=== PATIENT | male | born 1995 | race Caucasian/White ===

== ENCOUNTER 2017-05-22 09:10 | Emergency (ER) | payer MEDICAID ==
[~2017-05-22] VITALS: Wt 60.2 kg
--- NOTE | 2017-05-22 10:59 | RADRPT ---
PROCEDURE: XR Elbow. CLINICAL INDICATION: Trauma, left elbow pain TECHNIQUE: AP, lateral and oblique views of the left elbow performed. COMPARISON: None. FINDINGS: There is no radiographic evidence of acute fracture or dislocation. There is no significant joint e ffusion. The joint spaces are preserved. The soft tissues are grossly unremarkable. IMPRESSION: 1. No radiographic evidence of acute osseous abnormality or significant joint effusion. RPTAT: UU .Caleb Orellana MD, MD Date Time Electronically viewed and signed by .Caleb Orellana MD, on 05/22/2017 10:58 .K/
--- NOTE | 2017-05-22 11:00 | RADRPT ---
PROCEDURE: Left clavicle radiographs. CLINICAL INDICATION: Trauma. Left clavicle pain. TECHNIQUE: Two views. Frontal and frontal oblique. COMPARISON: None available. FINDINGS: There is an acute minimally-displaced and slightly apex superiorly angulated left mid clavicle fract ure. The acromioclavicular and coracoclavicular distances are normal. There is no additional fract ure. The visualized left lung is clear. IMPRESSION: 1. Acute minimally-displaced and slightly apex superiorly angulated left mid clavicle fracture. RPTAT: UU .Caleb Orellana MD, Date Time Electronically viewed and signed by .Caleb Orellana MD, on 05/22/2017 10:59 .K/
--- NOTE | 2017-05-22 11:05 | ERD ---
ER Documentation Chief Complaint Date/Time DATE: 05/22/17 TIME: 11:02 Chief Complaint LEFT SHOULDER PAIN FROM A FALL FROM SKATEBOARDING. LIMITED ROM FROM PAIN HPI Is a 21-year-old male who presents the emergency department today complaining of some left shoulder pain from a fall from a skateboard 2 days ago. States he has pain when he moves his arm. He has not taken a medication for the pain. Denies any previous trauma, fevers or chills ROS All systems reviewed and are negative except as per history of present illness. Medications Home Meds Active Scripts Neomycin Moore/Bacitrac Zn/Poly (Triple Antibiotic Ointment) 1 Each Oint.pack, 1 EACH TP BID for 7 Days Prov:BRADY VAZQUEZ PA-C 05/22/17 Naproxen* (Naprosyn*) 500 Mg Tablet, 500 MG PO BID Y for PAIN AND/OR INFLAMMATION, #30 TAB Prov:BRADY VAZQUEZ PA-C 05/22/17 Tramadol HCl (Tramadol HCl) 50 Mg Tablet, 50 MG PO Q4 Y for PAIN, #20 TAB Prov:BRADY VAZQUEZ PA-C 05/22/17 PMhx/Soc Medical and Surgical Hx: pt denies Medical Hx, pt denies Surgical Hx Hx Alcohol Use: No Hx Substance Use: No Hx Tobacco Use: No Physical Exam Vitals Vital Signs Date Time Temp Pulse Resp B/P Pulse Ox O2 Delivery O2 Flow Rate FiO2 05/22/17 09:20 98.2 77 20 150/85 98 Physical Exam Const: No acute distress Head: Atraumatic Eyes: Normal Conjunctiva ENT: Normal External Ears, Nose and Mouth. Neck: Full range of motion..~ No meningismus. Resp: Clear to auscultation bilaterally Cardio: Regular rate and rhythm, no murmurs Abd: Soft, non tender, non distended. Normal bowel sounds Skin: No petechiae or rashes. Abrasion left elbow MSK: Left shoulder with no obvious deformity. No effusion. Nontender to palpation. Left clavicle with evidence of deformity and tenderness palpation. Left elbow with pain with full active range of motion evidence of abrasion. Mild tenderness to palpation. Pulses 2+. Distal neurovascularly intact. Neur: Awake and alert Psych: Normal Mood and Affect Results 24 hrs Current Medications Medications (Trade) Dose Ordered Sig/Jennifer Route PRN Reason Start Time Stop Time Status Last Admin Dose Admin Ibuprofen (Motrin) 800 mg ONCE ONCE PO 05/22/17 11:30 05/22/17 11:31 DIAGNOSTIC IMAGING REPORT Patient: KWADWO PEREZ : 1995 Age: 21 Sex: M MR #: [id number] DOS: 05/22/17 0000 Ordering MD: BRADY VAZQUEZ PA-C Location: [facility] Room/Bed: PROCEDURE: XR Elbow. CLINICAL INDICATION: Trauma, left elbow pain TECHNIQUE: AP, lateral and oblique views of the left elbow performed. COMPARISON: None. FINDINGS: There is no radiographic evidence of acute fracture or dislocation. There is no significant joint effusion. The joint spaces are preserved. The soft tissues are grossly unremarkable. IMPRESSION: 1. No radiographic evidence of acute osseous abnormality or significant joint effusion. RPTAT: UU .Caleb Orellana MD, MD Date Time Electronically viewed and signed by .Caleb Orellana MD, MD on 05/22/2017 10: 58 .K/ CC: BRADY VAZQUEZ PA-C DIAGNOSTIC IMAGING REPORT Patient: KWADWO PEREZ : 1995 Age: 21 Sex: M MR #: [id number] DOS: 05/22/17 0000 Ordering MD: BRADY VAZQUEZ PA-C Location: [facility] Room/Bed: PROCEDURE: Left clavicle radiographs. CLINICAL INDICATION: Trauma. Left clavicle pain. TECHNIQUE: Two views. Frontal and frontal oblique. COMPARISON: None available. FINDINGS: There is an acute minimally-displaced and slightly apex superiorly angulated left mid clavicle fracture. The acromioclavicular and coracoclavicular distances are normal. There is no additional fracture. The visualized left lung is clear. IMPRESSION: 1. Acute minimally-displaced and slightly apex superiorly angulated left mid clavicle fracture. RPTAT: UU .Caleb Orellana MD, MD Date Time Electronically viewed and signed by .Caleb Orellana MD, on 05/22/2017 10: 59 .K/ CC: BRADY VAZQUEZ PA-C Procedures/MDM This is a 21-year-old male who presents the emergency department today complaining of left arm pain after falling off a skateboard 2 days ago. Given the trauma and physical exam I did obtain images. Per the radiology report images of the left elbow show no significant joint effusion. There is no evidence of fracture or dislocation. Joint spaces are preserved. Images of the left clavicle show an acute minimally displaced and slightly apex superiorly angulated left mid clavicle fracture. This is likely the source of the patient's pain. Patient was given Motrin here in the emergency department. He will be given a short course of tramadol, and Naprosyn for home. He is also given triple antibiotic ointment for his abrasion on his left elbow. He was also placed in a sling. He was instructed to follow-up with a primary care physician for referral to market development specialist. I have given him a list of resources. At this time the patient is stable for discharge and outpatient management. Patient should follow up with their PCP in the next 1-2 days. They may return to the emergency department sooner for any persistent or worsening of symptoms. Patient understood and agreed with the plan. Departure Diagnosis: Primary Impression: Clavicle fracture Encounter type: initial encounter Clavicle location: shaft Fracture type: closed Fracture alignment: displaced Laterality: left Qualified Code: S42.022A - Closed displaced fracture of shaft of left clavicle, initial encounter Additional Impression: Abrasion Condition: Fair BRADY VAZQUEZ PA-C May 22, 2017 11:05
[2017-05-22] MEDS ORDERED: TRAM50TA2 PO (11:13)
[2017-05-22] MEDS ORDERED: NAPR-260 PO (11:13)
[2017-05-22] MEDS ORDERED: NEOM1PAC TP (11:14)
[2017-05-22] MEDS ORDERED: IBUPROFEN 800 MG TAB PO ONE (11:30)
== END 2017-05-22 11:32 | disposition home or self-care (01) ==
LOC: FTE 09:10
DX: S42.022A Displaced fracture of shaft of left clavicle, initial encounter for closed fracture (principal); S50.312A Abrasion of left elbow, initial encounter; V00.131A Fall from skateboard, initial encounter; Y92.9 Unspecified place or not applicable
CPT/HCPCS: 73000; 73080; Z7610